=== PATIENT | male | born 1975 | race Caucasian/White ===

== ENCOUNTER → 2023-11-22 07:39 | Outpatient (REF) | payer OTHER, SELFPAY | LOC: EMG 07:39 | PROVIDERS: ATTENDING PHYSICIAN Internal Medicine | DX: M51.36 Other intervertebral disc degeneration, lumbar region (principal); M48.07 Spinal stenosis, lumbosacral region; R10.2 Pelvic and perineal pain; R20.0 Anesthesia of skin | CPT/HCPCS: 95886; 95911 ==

== ENCOUNTER → 2023-12-04 17:53 | Outpatient (REF) | payer OTHER, SELFPAY | LOC: MRI 3T 17:53 | PROVIDERS: ATTENDING PHYSICIAN Internal Medicine | DX: M51.36 Other intervertebral disc degeneration, lumbar region (principal); M48.07 Spinal stenosis, lumbosacral region; R10.2 Pelvic and perineal pain | CPT/HCPCS: 72148 ==

== ENCOUNTER → 2024-01-22 17:48 | Outpatient (REF) | payer OTHER, SELFPAY | LOC: MRI 3T 17:48 | PROVIDERS: ATTENDING PHYSICIAN Specialist; FAMILY PHYSICIAN Internal Medicine | DX: R20.2 Paresthesia of skin (principal) | CPT/HCPCS: 72156; A9575 ==

== ENCOUNTER → 2024-01-31 08:35 | Outpatient (REF) | payer OTHER, SELFPAY | LOC: MRI 08:35 | PROVIDERS: ATTENDING PHYSICIAN Specialist; FAMILY PHYSICIAN Internal Medicine | DX: G37.3 Acute transverse myelitis in demyelinating disease of central nervous system (principal) | CPT/HCPCS: 70553; 72157; A9575 ==

== ENCOUNTER → 2024-03-05 12:41 | Outpatient (REF) | payer OTHER, SELFPAY | LOC: HWRAD 12:41 | PROVIDERS: ATTENDING PHYSICIAN Internal Medicine | DX: R91.8 Other nonspecific abnormal finding of lung field (principal); R59.1 Generalized enlarged lymph nodes | CPT/HCPCS: 71260; Q9967 ==

== ENCOUNTER → 2024-03-06 12:28 | Outpatient (REF) | payer OTHER, SELFPAY ==
[2024-03-06 13:31] VITALS: BP 124/71; BP_SYST 70
[2024-03-06 13:39] LABS: Hematocrit 40.3 % (39.0-52.0); Hemoglobin 13.7 g/dL (13.0-18.0); Mean Corpuscular Hgb 28.8 pg (27.0-31.0); Mean Corpuscular Volume 84.8 fL (80.0-94.0); Mean Platelet Volume 10.8 fL (7.4-10.4); Platelet Count 199 10^3/uL (130-400); Red Blood Cell Count 4.75 10^6/uL (4.70-6.10); Red Cell Dist. Width 12.8 % (11.5-14.5); White Blood Cell Count 5.8 10^3/uL (4.8-10.8)
[2024-03-06 13:51] LABS: INR 1.07
[2024-03-06 14:10] LABS: Blood Urea Nitrogen 12 mg/dl (9-20); Calcium 9.4 mg/dl (8.4-10.2); Carbon Dioxide 27 mmol/L (22-30); Chloride 104 mmol/L (98-107); Glucose 95 mg/dl (70-99); Potassium 4.2 mmol/L (3.5-5.1); Sodium 140 mmol/L (135-145); eGFR > 60.00
[2024-03-06 16:30] LABS: Spinal Fluid Glucose 59 mg/dl (40-70); Spinal Fluid Protein 45 mg/dl (12-60)
[2024-03-06 16:43] LABS: CSF Tube # 4
[2024-03-06 16:44] LABS: CSF Clarity Clear; CSF Color Colorless; CSF Tube # 1; CSF Tube # Clarity Clear; Red Cell Count/CSF 0 mm^3; Red Cell Count/CSF 2 mm^3; White Blood Cell Count/CSF 1 mm^3 (0-5); White Cell Count/CSF 2 mm^3 (0-5)
== END ==
LOC: RADI 12:28
PROVIDERS: ATTENDING PHYSICIAN Specialist; FAMILY PHYSICIAN Internal Medicine
DX: R20.0 Anesthesia of skin (principal); R90.89 Other abnormal findings on diagnostic imaging of central nervous system; Z01.812 Encounter for preprocedural laboratory examination
CPT/HCPCS: 36415; 62328; 80048; 82040; 82042; 82164; 82784; 82945; 83873; 83916; 84157; 85027; 85610; 86592; 86618; 87476; 89051